=== PATIENT | male | born 1985 | race Caucasian/White ===

== ENCOUNTER 2017-05-30 16:00 | Emergency (ER) | payer OTHER ==
[2017-05-30 16:06] VITALS: BP 132/82; PULSE 88; RESP 16; TEMP 98.1; O2SAT 99
--- NOTE | 2017-05-30 17:01 | ED PDOC ---
Lower Extremity Pain/Injury Time Seen by Provider: 05/30/17 16:13 Chief Complaint (Nursing): Lower Extremity Problem/Injury Chief Complaint (Provider): bilateral ankle pain History Per: Patient History/Exam Limitations: no limitations Onset/Duration Of Symptoms: Hrs (x7 ) Current Symptoms Are (Timing): Still Present Additional Complaint(s): Thierno Singh is a 31 year old male who was brought to the emergency department by EMS due to bilateral ankle injury after having jumped 3 feet off of a pick-up truck this morning. Patient reports wearing construction shoes at the time and denies taking any medication for pain at home. He states he is unable to bear weight on either leg. He denies any numbness or tingling to affected area. Patient denies head injury or LOC, denies any back pain or neck pain. PMD: None provided. Past Medical History Reviewed: Historical Data, Nursing Documentation, Vital Signs Vital Signs: Last Vital Signs Temp 98.1 F 05/30/17 16:04 Pulse 88 05/30/17 16:04 Resp 16 05/30/17 16:04 BP 132/82 05/30/17 16:04 Pulse Ox 99 05/30/17 16:04 - Medical History PMH: No Chronic Diseases - Surgical History Surgical History: No Surg Hx - Family History Family History: States: No Known Family Hx - Living Arrangements Living Arrangements: With Family - Social History Current smoker - smoking cessation education provided: Yes ("sometimes") Alcohol: None Drugs: Denies - Home Medications Home Medications: Ambulatory Orders Medication Instructions Recorded Azithromycin [Zithromax Z-Herman] 250 mg PO DAILY #1 tab 02/13/16 Ibuprofen [Motrin] 600 mg PO Q6 #20 tab 02/13/16 Ibuprofen [Motrin Tab] 800 mg PO Q8 PRN #30 tab 05/30/17 - Allergies Allergies/Adverse Reactions: Allergies Allergy/AdvReac Type Severity Reaction Status Date / Time No Known Allergies Allergy Verified 05/30/17 18:16 Wells Criteria for PE - Wells Criteria for Pulmonary Embolism Clinical Signs and Symptoms of DVT: No P.E is #1 Diagnosis, or Equally Likely: No Heart Rate >100: No Immobilization at least 3 days;Surgery previous 4 weeks: No Previous, objectively diagnosed PE or DVT: No Hemoptysis: No Malignancy w/treatment within 6 months, or palliative: No Total Score: 0 Review of Systems ROS Statement: Except As Marked, All Systems Reviewed And Found Negative Musculoskeletal: Positive for: Leg Pain (bilateral ankle pain) Neurological: Positive for: Other (denies head injury or LOC) Physical Exam - Reviewed Nursing Documentation Reviewed: Yes Vital Signs Reviewed: Yes - Physical Exam Appears: Positive for: Well, Non-toxic, No Acute Distress Skin: Positive for: Normal Color. Negative for: Rash Eye Exam: Positive for: Normal appearance Neck: Positive for: Normal, Painless ROM. Negative for: Pain On Movement Of Neck Cardiovascular/Chest: Positive for: Regular Rate, Rhythm Respiratory: Positive for: Normal Breath Sounds Gastrointestinal/Abdominal: Positive for: Soft. Negative for: Tenderness, Distended, Guarding Back: Positive for: Normal Inspection. Negative for: L CVA Tenderness, R CVA Tenderness, Vertebral Tenderness, Muscle Spasm Extremity: Positive for: Other (tenderness and swelling to dorsal aspect of bilateral ankles with decreased ROM of both ankles. Mild tenderness to feet bilaterally, no obvious bony deformity, normal distal sensation to lower extremities bilaterally). Negative for: Calf Tenderness, Deformity Neurologic/Psych: Positive for: Alert, Oriented - ECG O2 Sat by Pulse Oximetry: 99 (RA) Pulse Ox Interpretation: Normal - Other Rad Right foot and ankle x-ray X-Ray: Interpreted by Me, Viewed By Me, Read By Radiologist X-Ray Interpretation: no fx, no dis Left foot and ankle x-ray X-Ray: Interpreted by Me, Viewed By Me, Read By Radiologist X-Ray Interpretation: no fx, no dis Medical Decision Making Medical Decision Making: Initial Impression: 31 y/o male with injury to bilateral ankles Initial Plan: --Motrin Tab 600 mg PO --Ankle left 3 views [RAD] --Ankle right 3 views [RAD] --Foot left 3 views [RAD] --Foot right 3 views [RAD] Podiatry resident, Dr. Lares at bedside to see patient. Bilateral veliz dressings applied to both lower extremities, crutches given. Rx motrin. Patient was referred to podiatry clinic or follow up this coming Tuesday. Scribe Attestation: Documented by Fredis Torres, acting as a scribe for Eloisa MORALES. Provider Scribe Attestation: All medical record entries made by the Scribe were at my direction and personally dictated by me. I have reviewed the chart and agree that the record accurately reflects my personal performance of the history, physical exam, medical decision making, and the department course for this patient. I have also personally directed, reviewed, and agree with the discharge instructions and disposition. Disposition - Clinical Impression Clinical Impression: Left ankle sprain, Right ankle sprain - Patient ED Disposition Is Patient to be Admitted: No Counseled Patient/Family Regarding: Studies Performed, Diagnosis, Need For Followup, Rx Given - Disposition Referrals: Podiatry Clinic [Outside] Disposition: Routine/Home Disposition Time: 19:25 Condition: STABLE Additional Instructions: ICE, REST AND ELEVATE AFFECTED AREAS. TAKE RX MEDS DIRECTED NEEDED FOR PAIN. CALL PODIATRY CLINIC IN THE MORNING TO ARRANGE FOR FOLLOW UP VISIT FOR THIS COMING TUESDAY IN CLINIC WITH DR. OSEGUERA. Prescriptions: Ibuprofen [Motrin Tab] 800 mg PO Q8 PRN #30 tab PRN Reason: Pain, Moderate (4-7) Instructions: Ankle Sprain (ED), Crutch Instructions (ED) Forms: [employer] ([place]), [facility] ED School/Work Excuse
--- NOTE | 2017-05-30 17:52 | RAD ---
PROCEDURE: Right Ankle Radiographs. Three views of the right and left ankles performed HISTORY: trauma COMPARISON: Correlation made with concurrent radiographs of the right foot. FINDINGS: BONES: Normal. No fracture. JOINTS: Normal. No osteoarthritis. Ankle mortise maintained. Talar dome intact SOFT TISSUES: Questionable minimal bilateral soft tissue swelling. OTHER FINDINGS: None. IMPRESSION: No evidence of acute displaced fracture nor dislocation. Suspect minimal bilateral soft tissue swelling If symptoms persist or occult fracture suspected clinically recommend repeat radiographs in 5-10 days as most fractures should become radiographically evident in this timeframe.
--- NOTE | 2017-05-30 17:54 | RAD ---
PROCEDURE: Left Ankle Radiographs. Three views of the left ankle performed HISTORY: trauma COMPARISON: Correlation made with concurrent radiographs left foot FINDINGS: BONES: No evidence of acute displaced fracture nor dislocation. JOINTS: Normal. No osteoarthritis. Ankle mortise maintained. Talar dome intact SOFT TISSUES: Normal. OTHER FINDINGS: None. IMPRESSION: No evidence of acute displaced fracture or dislocation. If symptoms persist or occult fracture suspected clinically recommend repeat radiographs in 5-10 days as most fractures should become radiographically evident in this timeframe.
--- NOTE | 2017-05-30 17:58 | RAD ---
PROCEDURE: Left foot dated 05/30/2017. HISTORY: trauma COMPARISON: None. FINDINGS: BONES: No evidence of acute displaced fracture nor dislocation. There appears be a bipartite medial ossicle at the level of the metatarsal head. JOINTS: Mild hallux valgus deformity with overgrowth of the head of the 1st metatarsal and minor DJD 1st MTP joint and overlying prominence of the medial soft tissues. SOFT TISSUES: Normal. OTHER FINDINGS: None. IMPRESSION: No acute fractures nor dislocations. Bipartite appearing medial ossicle at the level of the metatarsal head.
--- NOTE | 2017-05-30 18:00 | RAD ---
PROCEDURE: Right Foot Radiographs. HISTORY: trauma COMPARISON: None. FINDINGS: BONES: No evidence of acute displaced fracture or dislocation. Osseous structures appear intact. JOINTS: Hallux valgus deformity with bipartite appearing medial ossicle at the level of the metatarsal head. . Overgrowth of the head of the 1st metatarsal and DJD 1st MTP joint. Prominent overlying medial soft tissues consistent with bunion SOFT TISSUES: Normal. OTHER FINDINGS: None. IMPRESSION: No evidence of acute displaced fracture nor dislocation. Hallux valgus deformity with overgrowth of the head of the 1st metatarsal and mild DJD 1st MTP joint overlying ; there is also overlying mild soft tissue prominence consistent with bunion.
--- NOTE | 2017-05-30 19:06 | CP.PCM.CON ---
History of Present Illness - History of Present Illness History of Present Illness: Podiatry Consult Note - Dr. Paz 31 year old male with unremarkable PMH seen in ED complaining of bilateral ankle pain. Patient seen resting comfortably, AAOx3 and NAD. Patient states he jumped off the bed of a parked pick-up truck earlier today, and landed incorrectly as he jumped onto a walkway. (-)LOC. Patient admits to 5/10 pain in both feet and ankles, and states he is unable to bear weight on either leg. Patient denies any lower back pain or high leg pain b/l. Patient admits to taking motrin to alleviate the pain. Patient denies N/V/F/D/C/SOB/calf pain. No other pedal complaints at this time. PMH: unremarkable PSH: none SH: occasional smoker, (-)ETOH FH: noncontributory Meds: see med list All: NKDA Review of Systems - Review of Systems All systems: reviewed and no additional remarkable complaints except (as per HPI ) Past Patient History - Infectious Disease Hx of Infectious Diseases: None - Past Social History Alcohol: None Drugs: Denies - PSYCHIATRIC Hx Substance Use: No - SURGICAL HISTORY Hx Surgeries: Yes Meds Home Medications: Home Medication List Medication Instructions Recorded Confirmed Type Ibuprofen [Motrin Tab] 800 mg PO Q8 PRN #30 tab 05/30/17 Rx Allergies/Adverse Reactions: Allergies Allergy/AdvReac Type Severity Reaction Status Date / Time No Known Allergies Allergy Verified 05/30/17 18:16 Physical Exam - Constitutional Appears: Well, Non-toxic, No Acute Distress - Extremities Exam Extremities exam: Positive for: tenderness Additional comments: VASC: DP and PT pulses palpable 2/4 b/l. CFT <3 seconds to all digits x10. TG cool to cool b/l. Non-pitting edema noted to anterolateral ankle b/l. Hair growth noted. NEURO: Gross sensation intact bilaterally. DERM: Erythema noted to anterolateral ankle b/l. No open lesion noted. No ecchymosis noted. ORTHO: Pain on palpation noted to anterior ankle b/l. Pain on palpation to ATFL b/l. Pain upon ROM ankle joint b/l. Pain upon active MPJ ROM b/l. Dorsiflexion and plantarflexion muscle strength deferred secondary to guarding b/l. Inversion and eversion muscle strength 4/5 secondary to guarding b/l. No pain on calcaneal squeeze b/l. No pain on palpation peroneal tendons b/l. No pain on palpation Achilles insertion b/l. (+) R anterior drawer. (-)lateral talar tilt b /l. - Neurological Exam Neurological exam: Alert, Oriented x3 - Psychiatric Exam Psychiatric exam: Normal Affect, Normal Mood Results - Vital Signs Recent Vital Signs: Last Vital Signs Temp 98.1 F 05/30/17 16:04 Pulse 88 05/30/17 16:04 Resp 16 05/30/17 16:04 BP 132/82 05/30/17 16:04 Pulse Ox 99 05/30/17 18:30 Assessment & Plan - Assessment and Plan (Free Text) Assessment: 31 year old make with unremarabke PMH bilateral ankle pain secondary to mechanical fall Plan: Patient seen and evaluated Discussed with attending, Dr. Paz Chart and vitals reviewed XR (b/l ankle, b/l foot) reviewed: no evidence of acute fracture or dislocation Bilateral Pham dressings with surgical shoes applied to lower extremities Patient is to be WBAT b/l with the assistance of crutches Recommend ibuprofen Recommend RICE therapy Patient is to follow up in podiatry clinic or Dr. Paz's office on Tuesday Stable from podiatry standpoint Thank you for this consult; please re-consult podiatry again as needed
== END 2017-05-30 20:21 | disposition home or self-care (01) ==
LOC: H.ER 16:00
DX: S93.401A Sprain of unspecified ligament of right ankle, initial encounter (principal); S93.402A Sprain of unspecified ligament of left ankle, initial encounter; V89.9XXA Person injured in unspecified vehicle accident, initial encounter